=== PATIENT | male | born 1950 | race Caucasian/White ===

== ENCOUNTER 2018-01-23 19:23 | Inpatient (IN) | payer MEDICARE ==
[2018-01-23] MEDS ORDERED: Norepinephrine 8 MG/0.9% NS 250 ML ONE (19:30)
[2018-01-23 19:48] LABS: pH, Arterial 7.32 (7.35-7.45)
[2018-01-23 19:49] LABS: Actual Bicarbonate (HCO3a) 8.9 mEq/L (22-28); CO2 Tension 17.8 mmHg (35.0-45.0); O2 Tension (PaO2) 38.9 mmHg (> 80.0)
[2018-01-23 19:50] LABS: Base Excess (BEa) -15.5 mEq/L (-2.0 to +3.0); Carboxyhemoglobin (COHb) 0.2 gm% (0.0-3.0); Hemoglobin (Hb) 8.1 g/dL (14.0-18.0)
[2018-01-23 19:51] LABS: Analyzer IN Cardio ER; Calcium, Ionized 0.74 mmol/L (1.12-1.30); Potassium - ABG Lab 1.47 mmol/L (3.70-5.30); Puncture Site RBA
[2018-01-23] MEDS ORDERED: Propofol 1,000 MG/100 ML VIAL IV ONE (19:55)
[2018-01-23 20:05] LABS: #Monocytes 0.5 thou/uL (0.11-0.59); #Neutrophils 10.8 thou/uL (1.40-6.50); %Basophils 0.2 % (0.0-1.0); %Eosinophils 0.1 % (0.0-10.0); %Monocytes 4.3 % (0.0-10.0); %Neutrophils 87.4 % (42.0-75.0); Mean Corpuscular HGB CONC 33.5 g/dL (32.0-36.0); Mean Corpuscular Hemoglobin 31.6 pg (27.0-31.0); Mean Corpuscular Volume 94.5 fL (78.0-98.0); Mean Platelet Volume 8.2 fL (7.4-10.4); Platelet Count 252 thou/uL (130-400); RBC Distribution Width 11.9 % (11.5-14.5); Red Blood Cell (RBC) Count 4.44 mill/uL (4.70-6.10); White Blood Cell (WBC) Count 12.4 thou/uL (4.8-10.8)
[2018-01-23 20:13] LABS: INR-International Normal Ratio 1.3; PTT 34.9 SEC (22.9-36.1)
[2018-01-23 20:22] LABS: Magnesium 2.2 mg/dL (1.6-2.6)
[2018-01-23 20:23] LABS: Bilirubin Large (Negative); Blood, Urine Negative (Negative); Clarity CLEAR (Clear); Glucose, Urine (Dipstick) Negative (Negative); Leukocyte Small (Negative); Nitrite Negative (Negative); Protein, Urine (Dipstick) Trace mg/dL (Neg-Trace); Specific Gravity, Urine 1.029 (1.002-1.036); pH, Urine 5.5 (5.0-9.0)
[2018-01-23 20:25] LABS: Troponin I Less than 0.010 ng/mL (< 0.028)
[2018-01-23 20:25] LABS: Bacteria/HPF None Seen HPF (None Seen); Hyaline Casts/LPF 0-3 HYALINE CAST LPF (0-3 Hyaline); Pathc Cast-AUWi Flag 0.14 (0-2.49); RBC/HPF 0-3 HPF (0-3); Squamous Epithelial None Seen HPF (0-3); WBC/HPF None Seen HPF (0-3)
[2018-01-23 20:26] LABS: ALT (SGPT) 17 U/L (8-55); AST (SGOT) 19 U/L (5-34); Acetaminophen Less than 6.0 mcg/mL (10.0-30.0); Albumin 2.4 g/dL (3.4-4.8); Alcohol Less than 10 mg/dL (Less than 10); Alkaline Phosphatase 81 U/L (40-150); Anion Gap 17 mmol/L (10-20); BUN (Urea Nitrogen) 40 mg/dL (8.4-25.7); Bilirubin, Total 0.6 mg/dL (0.2-1.2); Calc. Creatinine Clearance 0 mL/min (70-130); Calcium 6.9 mg/dL (7.8-10.44); Carbon Dioxide 17 mmol/L (23-31); Chloride 114 mmol/L (98-107); Estimated GFR-MDRD Greater than 90; Globulin 2.1 g/dL (2.4-3.5); Glucose 124 mg/dL (80-115); Potassium 3.2 mmol/L (3.5-5.1); Protein, Total 4.5 g/dL (5.8-8.1); Salicylate Less than 8.0 mg/dL (15.0-30.0); Sodium 145 mmol/L (136-145)
[2018-01-23 20:35] LABS: Amphetamine Not Detected (NotDetected); Barbiturates Screen Not Detected (NotDetected); Benzodiazepine Screen Not Detected (NotDetected); Cocaine Metabolite Screen Not Detected (NotDetected); Medtox Control Line Valid? VALID (VALID); Medtox Reader # READER 1; Methadone Not Detected (NotDetected); Methamphetamine Not Detected (NotDetected); Opiate Screen Not Detected (NotDetected); Oxycodone Screen Not Detected (NotDetected); Phencyclidine (PCP) Not Detected (NotDetected); THC/Cannabinoid Screen Not Detected (NotDetected); Tricyclic Screen Not Detected (NotDetected)
--- NOTE | 2018-01-23 20:40 | RAD ---
CHEST ONE VIEW: 01/23/18 HISTORY: Chest pain. FINDINGS: The cardiac silhouette is magnified by projection. Pulmonary vasculature unremarkable. Mediastinum is midline. Tip of an endotracheal catheter overlies the thoracic inlet. Nasogastric tube descends to t he abdomen. Defibrillator patch overlies the right chest. No lobar consolidation or evidence of pneum othorax. Tip of a right subclavian central venous catheter overlies the superior vena cava. IMPRESSION: Lines and tubes are in good radiographic position. POS: [facility]
--- NOTE | 2018-01-23 20:59 | CT ---
CT HEAD NONCONTRAST: 01/23/18 HISTORY: Fall. Head injury. FINDINGS: No comparison. There is no evidence of acute intracranial hemorrhage or infarct. Ventricles appear normal in size, s hape and position. There is no mass effect or shift of midline structures. IMPRESSION: No acute intracranial abnormalities are demonstrated. POS: [facility]
[2018-01-23] MEDS ORDERED: Magnesium 2 GM/50 ML BAG (IN WATER) ONE (21:01)
[2018-01-23] MEDS ORDERED: Piperacillin/Tazobactam 4.5 GM VIAL ONE (21:01)
--- NOTE | 2018-01-23 21:16 | CT ---
CT CERVICAL SPINE NONCONTRAST 01/23/18 HISTORY: Neck injury. Fall. FINDINGS: vertebral body heights and alignment are maintained. Prominent osteophytosis. Cervicothoracic junctio n is intact. No acute fracture or dislocation. Endotracheal catheter and nasogastric tube are partial ly visualized. IMPRESSION: Degenerative changes. No acute osseous abnormalities are demonstrated. POS: [facility]
[2018-01-23] MEDS ORDERED: Enoxaparin Sodium 80 MG/0.8 ML SYRINGE ONE (22:27)
[2018-01-23] MEDS ORDERED: Potassium Chloride 40 MEQ in Premix Bag 1 BAG IVPB SCH (22:30)
[2018-01-23 23:46] LABS: Lactic Acid 2.4 mmol/L (0.5-2.2)
--- NOTE | 2018-01-23 23:53 | CT ---
CT ARTERIOGRAM CHEST WITH IV CONTRAST AND 3D MIP IMAGIN01/23/18 HISTORY: Chest pain. Dyspnea. FINDINGS: There is good contrast opacification of the pulmonary arteries and thoracic aorta with bovine origin of the great vessels at the aortic arch. No pleural fluid or mediastinal adenopathy. IMPRESSION: No CT evidence of pulmonary embolus. POS: [facility]
--- NOTE | 2018-01-23 23:56 | CT ---
CT ABDOMEN AND PELVIS WITH IV CONTRAST 01/23/18 HISTORY: Abdomen pain. FINDINGS: Lung bases are clear. Gallbladder is distended at 9.4 cm without other abnormality evident. Small cys ts associated with the cortex of each kidney and the liver. The spleen, adrenal glands and pancreas a re unremarkable. Mild fusiform ectasia of the lower abdominal aorta. Stearns catheter decompresses the urinary bladder. No enlarged lymph nodes or free fluid. There are degenerative changes of the lumbar spine. IMPRESSION: Chronic type findings as detailed above. No acute abnormalities are demonstrated. POS: [facility]
[2018-01-24] MEDS ORDERED: Fentanyl BOLUS 250 ML IVPB PRN ×2 (00:01→07:47)
[2018-01-24] MEDS ORDERED: fentaNYL Citrate/PF 2,000 MCG in Sodium Chloride 0.9% 60 ML IV SCH ×2 (00:01→07:47)
[2018-01-24] MEDS ORDERED: Propofol BOLUS 1,000 MG/100 ML VIAL IV PRN ×2 (00:01→07:47)
[2018-01-24] MEDS ORDERED: Lorazepam 2 MG/ML VIAL SLOW IVP PRN ×2 (00:01→07:47)
[2018-01-24] MEDS ORDERED: DISCONTINUE PREVIOUS NARCOTIC PAIN MEDICATIONS AND BENZODIAZEPINES FS SCH (00:01)
[2018-01-24] MEDS ORDERED: Propofol 1,000 MG/100 ML VIAL IV PRN ×2 (00:01→07:47)
[2018-01-24] MEDS ORDERED: Sodium Chloride 0.9% 1,000 ML IV SCH (00:15)
[2018-01-24 00:57] LABS: Actual Bicarbonate (HCO3a) 18.1 mEq/L (22-28); Base Excess (BEa) -5.1 mEq/L (-2.0 to +3.0); CO2 Tension 28.6 mmHg (35.0-45.0); Calcium, Ionized 1.06 mmol/L (1.12-1.30); Carboxyhemoglobin (COHb) 0.2 gm% (0.0-3.0); Hemoglobin (Hb) 13.2 g/dL (14.0-18.0); O2 Tension (PaO2) 335.6 mmHg (> 80.0); Potassium - ABG Lab 4.15 mmol/L (3.70-5.30); pH, Arterial 7.42 (7.35-7.45)
[2018-01-24 00:58] LABS: Puncture Site RRAD
--- NOTE | 2018-01-24 03:18 | CON ---
DATE OF SERVICE: 01/24/2018 REASON FOR CONSULTATION: Respiratory failure. HISTORY OF PRESENT ILLNESS: Patient is a 67-year-old white male with past medical history significant for nothing known. Apparently, he was found down by some neighbors. There was reports that he had struck his head. Either way, he was brought to the emergency department and found to be hypotensive, dehydrated, and hypothermic. He was heated. He was initially put on a low- dose suppressor. This is more than adequate to maintain his MAP. He got a couple liters of fluid, and his blood pressure returned to normal. He is currently on mechanical ventilation. He is on some propofol and so we cannot provide any additional elements of the history. PAST MEDICAL HISTORY: Largely unknown. We do not have any family members that we can talk to that are aware of his situation. PAST MEDICAL HISTORY: Unknown. PAST SURGICAL HISTORY: Unknown. SOCIAL HISTORY: Unknown. FAMILY HISTORY: Unknown. ALLERGIES: Unknown. HOME MEDICATIONS: List of his inpatient medications were reviewed. Couple of small updates were made. REVIEW OF SYSTEMS: This cannot be obtained secondary to patient's mental status issues. PHYSICAL EXAMINATION: VITAL SIGNS: Afebrile, pulse 93, blood pressure 122/75, respirations 14, saturation 95% on 27% FiO2 and a PEEP of 5. GENERAL: Patient is intubated and sedated. HEENT: Normocephalic, atraumatic. Sclerae white, conjunctivae pink. Oral and nasal mucosa is moist without lesions. LUNGS: Excellent air entry. There is no prolonged expiratory phase or wheezing appreciated. HEART: Normal rate, regular. ABDOMEN: Soft, nontender, nondistended, bowel sounds are positive. MUSCULOSKELETAL: No cyanosis or clubbing. There is no pitting in the bilateral lower extremities. SKIN: Tenting throughout. GENITOURINARY: Stearns catheter in place. NEUROLOGIC: Grossly nonfocal. Eyes: Pupils are equal, round, and reactive to light. He has a good cough and gag. He is comfortably overbreathing the ventilator. He withdrawals from noxious stimuli in all 4 extremities. LABORATORY DATA: WBC 12.4, hemoglobin 14.0, platelets 252,000. INR 1.3. PH 7.42, pCO2 of 28, pO2 of 335. This was on 70% FIO2. Glucose 132, lactate down trending to 2.4, magnesium 2.2. CK is normal. TSH falls within normal limits. Troponin is negative x1. Liver function studies are essentially unremarkable. Potassium 3.2, sodium 145, chloride 114, bicarbonate 17. Ammonia level is normal, lipase is also unremarkable. Urinalysis is completely unremarkable. It is a little concentrated. Urine drug screen including salicylates, acetaminophen, and plasma alcohol levels are unremarkable. Urine drug screen is negative. IMAGIN. CTA of the chest and thorax demonstrates no evidence of a pulmonary embolism. Endotracheal tube terminates in a good position. There is no acute cardiopulmonary abnormality, otherwise identified. Heart size is fairly small and does not look like there is any dilation to the four chambers. 2. CT of the abdomen and pelvis demonstrates no acute abdominal issues. Chronic changes are incidentally identified. 3. CT of the C-spine demonstrates no osseous abnormality or subluxation. 4. CT of the brain demonstrates no acute intracranial abnormality. 5. Chest x-ray demonstrates no acute cardiopulmonary abnormality. ASSESSMENT: 1. Metabolic encephalopathy. 2. Dehydration, severe. 3. Hypokalemia. 4. Alcohol abuse. DISCUSSION AND PLAN: We will switch his IV fluids over to half normal saline at 100 per hour. Potassium replacement has been completed. We will check a magnesium and phosphorus with tomorrow morning's laboratories. Propofol will be continued. In the morning, we will provide him with a spontaneous breathing trial while he is on the sedation holiday and determine whether or not his mentation will allow for comfortable extubation. CRITICAL CARE TIME: 30 minutes. MTDD
[2018-01-24] MEDS: Sodium Chloride 0.45% 1,000 ML IV SCH ×3 (04:52→15:46)
[2018-01-24] MEDS ORDERED: Ondansetron ODT 4 MG TAB PO PRN (07:18)
[2018-01-24] MEDS ORDERED: Acetaminophen 650 MG Suppository PR PRN (07:18)
[2018-01-24] MEDS ORDERED: Norepinephrine 8 MG/0.9% NS 250 ML IVPB PRN (07:18)
[2018-01-24] MEDS ORDERED: Lacri-Lube Opth Oint 3.5 GM TUBE EA EYE PRN (07:18)
[2018-01-24] MEDS ORDERED: Acetaminophen 325 MG TAB PO PRN (07:18)
[2018-01-24] MEDS ORDERED: Ventilator Sedation Protocol 1 EACH FS SCH (07:30)
[2018-01-24 07:52] LABS: Hemoglobin 12.8 g/dL (14.0-18.0); Mean Corpuscular Hemoglobin 30.8 pg (27.0-31.0); Mean Corpuscular Volume 93.3 fL (78.0-98.0); Mean Platelet Volume 7.8 fL (7.4-10.4); Platelet Count 210 thou/uL (130-400); Red Blood Cell (RBC) Count 4.16 mill/uL (4.70-6.10); White Blood Cell (WBC) Count 25.5 thou/uL (4.8-10.8)
--- NOTE | 2018-01-24 07:55 | HP ---
CHIEF COMPLAINT: Intubated. HISTORY OF PRESENT ILLNESS: This is a 67-year-old male who was found unresponsive at his garage apartment. School Teacher of the apartment had not seen the patient in a while, so went to go checkup on the patient and microfilm machine operator states that the patient stated that he hit his head. EMS arrived and patient was lying in his urine with a GCS score of 10. The patient was then intubated when the patient's GCS dropped to 8. En route, the patient was given fentanyl and ketamine plus rocuronium and a liter of IV fluid was given as well. The patient 's rectal temperature en route was 94.9, glucose was 193. REVIEW OF SYSTEMS: Unable to be obtained. PAST MEDICAL HISTORY: Unable to be obtained. FAMILY HISTORY: Reviewed and noncontributory to this visit. ALLERGIES: No known drug allergies. CURRENT MEDICATIONS: Unable to be obtained. PHYSICAL EXAMINATION: VITAL SIGNS: Pulse of 106, blood pressure of 61/50, respiratory rate of 12, O2 sat of 98 on ventilator. GENERAL APPEARANCE: The patient is lying in bed with endotracheal tube in place. LUNGS: Ventilated lung sounds can be appreciated at the anterior lung matute. CARDIOVASCULAR: Positive S1, S2. Regular rate and rhythm. ABDOMEN: Soft, nontender, nondistended. NEURO: The patient is GCS of 3T. EXTREMITIES: The patient is not following commands at this time and extremity details cannot be obtained. LABORATORY DATA: The patient's WBC is 12.4, hemoglobin is 14, hematocrit 41.9, RDW of 11.9. PT 16, INR is 1.3. ABGs; pH 7.3, pCO2 of 17, pO2 is 38.9, repeat is 335, pO2 saturation 63.8, repeat was 99.7 when the patient was on the vent. Sodium 145, potassium 3.2, chloride 114, carbon dioxide 17, BUN 40, creatinine 0.66, glucose 124. Lactic acid of 2.8, magnesium 2.2, AST 19, ALT 17, alkaline phosphatase 81. Ammonia is 41, creatinine 17. Lipase is 13. TSH is 2.5, nitrite is negative, leukocyte esterase is small. IMAGING: CT of the brain shows no acute intracranial pathology. Chest x-ray shows the lines and tubes are in good radiographic positions. CTA of the thorax shows no PE. CT of the abdomen and pelvis is negative. ASSESSMENT AND PLAN: 1. This is a 67-year-old male who has been admitted for hypoxemic respiratory failure. At this point, the patient has been intubated on the vent. The patient has been admitted to the ICU. We have consulted tensioning machine operator. We will manage the patient in the ICU. 2. Septic shock. The patient's temperature is 94 with a white count and the patient has a small leukoesterase. We have ordered cultures. We will follow up on cultures. We will start the patient on broad spectrum antibiotics. We will follow up on cultures and adjust antibiotics accordingly. We will follow up with tensioning machine operator recommendations. 3. Hypothermia. Patient is currently on Mahesh Hugger, we will continue to warm the patient. We will follow up on TSH and cortisol levels. 4. Hypotension. At this point, patient is on Levophed. The patient has been admitted to the ICU. 5. Deep venous thrombosis and gastrointestinal prophylaxis will be Lovenox and Pepcid. MTDD
[2018-01-24] MEDS ORDERED: Morphine 2 MG/ML SYRINGE SLOW IVP PRN (08:00)
[2018-01-24 08:10] LABS: Anion Gap 15 mmol/L (10-20); BUN (Urea Nitrogen) 34 mg/dL (8.4-25.7); Calc. Creatinine Clearance 89 mL/min (70-130); Calcium 7.9 mg/dL (7.8-10.44); Carbon Dioxide 20 mmol/L (23-31); Chloride 114 mmol/L (98-107); Estimated GFR-MDRD Greater than 90; Glucose 100 mg/dL (80-115); Magnesium 2.5 mg/dL (1.6-2.6); Potassium 3.7 mmol/L (3.5-5.1); Sodium 145 mmol/L (136-145)
[2018-01-24 08:43] LABS: Band 26 % (5-11); Lymphocytes 5 % (21-51); MDiff Complete? YES; Monocytes 3 % (0-10); Neutrophil 66 % (42-75); PLT Morphology Comment Appears Adequate; Vacuoles SLIGHT
[2018-01-24] MEDS: Piperacillin/Tazobactam 3.375 GM in Sodium Chloride 0.9% 100 ML IVPB SCH ×3 (09:36→20:53)
[2018-01-24] MEDS: Famotidine/PF 20 mg/2ml Vial SLOW IVP SCH ×2 (09:37→20:54)
[2018-01-24] MEDS: Vancomycin HCl 1 GM in Premix Bag 1 BAG IVPB SCH ×2 (09:37→20:54)
[2018-01-24] MEDS: Enoxaparin Sodium 40 MG/0.4 ML SYRINGE SC SCH (09:37)
--- NOTE | 2018-01-24 11:43 | PQF ---
DUNG AGRAY CLARIBEL CAMPA [id number] CLINICAL DOCUMENTATION IMPROVEMENT CLARIFICATION FORM: ICD-10 Updated PLEASE DO AN ADDENDUM TO THE PROGRESS NOTE WITH ANY DOCUMENTATION UPDATES OR ADDITIONS AND CARRY THROUGH TO DC SUMMARY. THANK YOU. DATE: 01/24/18 ATTN: DR. CAMPA Please exercise your independent, professional judgment in responding to the clarification form. Clinical indicators are provided on the bottom of this form for your review Please check appropriate box(es): [X ] Severe sepsis with acute organ dysfunction of: Acute respiratory failure, metabolic encephalopathy with septic shock due to UTI [ ] Sepsis due to [ ] Localized infection without sepsis [ ] Other diagnosis [ ] Unable to determine In addition, please specify: Present on Admission (POA): [ X] Yes [ ] No [ ] Unable to determine For continuity of documentation, please document condition throughout progress notes and discharge summary. Thank You. CLINICAL INDICATORS - SIGNS / SYMPTOMS / LABS Altered mental status--> 01/24 Pulm: metabolic encephalopathy Hypothermia (<96.8 F/36 C or > 100.4 F/38C), temp 94.9 per 01/23 VS and H&P Hypoxemic respiratory failure per H&P; ABG pO2 63.8 SBP <100mmHg--> hypotension per H&P Metabolic acidosis Lactic Acid >2mmol/L--> co2 17, lactic acid 2.8 01/23 lab Shock-hypotension resistant to IV fluid boluses--> septic shock per H&P WBC count (>12,000/mm^4 or <4000/mm^3 or 10% neuts, 10% bands)-->wbc 12.4 per lab 01/23 UA with small leukest per H&P RISK FACTORS Found unresponsive with respiratory failure, hypotension, small leuk in UA per H &P TREATMENTS: ICU 01/23 orders Daily CBC per orders 01/23 Blood/urine cultures 01/23 per orders Pulm Consult 01/23 per orders IV antibiotics - broad spectrum--> Vanc and Zosyn per JUN 15 IV fuids--> multiple NS bolus per H&P Vasopressors--> 01/23 Levophed drip per JUN Thank you, Clementina (This form is maintained as a part of the permanent medical record) 2015 [employer] All Rights Reserved Clementina Torres RN, BSN, [email or web address] [email or web address] MTDD
--- NOTE | 2018-01-24 14:52 | CON ---
DATE OF CONSULTATION: 01/24/2018 DATE OF ADMISSION: 01/23/2018 INDICATION FOR CONSULTATION: This is a 67-year-old gentleman who was found down at home, apparently was incoherent, was not completely unconscious, was apparently lying and some urine and was brought t o the emergency room. I believe he was actually intubated prior to being brought to the emergency ro om. He does have a history apparently of alcohol use, so we were unable to obtain any further histor y except from review of the records. The patient in the Intensive Care Unit at this time, he remains on the ventilator. He is responsive to some of the manual stimulation, but is not otherwise he look s appear to be comfortable. His blood pressure at this time is 97/66 and heart rate is 83 and shows a sinus rhythm. His EKG at the time of admission and still shows what appears to be a long QT syndro me. There was some question about some ventricular tachycardia, but I have not seen anything documen rhonda, otherwise about that. I do not see indication that the patient had any ventricular tachycardia. He has a sinus rhythm. He was also hypothermic and appears to have some sepsis, elevated white cou nt is present and workup has been underway to determine the etiology of the elevation, it may be just due to demargination with stress associated with his other medical problems and being found down. I t was uncertain as to how long he was down on the floor before his neighbor found him. The temperatu re en route was 94.9, blood sugar was 193. As far as his past medical history, allergies, current medications, we do not have any records of thi s knowledge and obviously review of systems is not obtainable and family history either. PHYSICAL EXAMINATION: GENERAL: Reveals an elderly, ill-kempt gentleman. VITAL SIGNS: Blood pressure is 108/72, heart rate is 80 and shows a sinus rhythm. O2 saturation 95% , respiratory rate on the ventilator is about 28 per minute. HEENT: Shows head to be normocephalic and atraumatic. NECK: Carotid pulses are present. I did not hear any bruits. CHEST: Appears to be clear anteriorly. There are no rales, rhonchi or wheezing. CARDIOVASCULAR: Exam reveals a regular rate and rhythm, normal S1, S2, no S3, S4. There were no sig nificant murmurs, heaves, thrills, bruits or rubs. ABDOMEN: Soft, nontender with deep palpation. He does have some what appears to be some discomfort, but I could not palpate any masses. EXTREMITIES: Showed no clubbing, cyanosis or edema. Pedal pulses are present. SKIN: Warm and dry. LABORATORY DATA: Shows elevation of the white blood cell count is increased from 12.4-25.5 since adm ission. His hemoglobin is stable and is now 12.8, with a hematocrit of 38.8. His platelet count is 210,000. His other laboratory data shows potassium 3.7, BUN was 34 with a creatinine 0.78. Cardiac enzymes are negative. Blood sugar is 132 and previous includes 124. Urinalysis was unremarkable for any significant bacteria or WBCs. His plasma alcohol level was less than 10, apparently from some h istory, the patient does drink heavily every day. IMPRESSION: 1. Mental status changes, uncertain etiology. The patient may have sepsis, the workup is in progres s. He has been given antibiotics. We will continue those medications. He has been cared for in the Intensive Care Unit. He has been seen by the newsperson, Dr. Morrissey. Otherwise, the patient appe ars to be comfortable at this time. 2. What appears to be long QT syndrome on the EKG. We will continue to monitor this. There is no i ndication the patient had any ventricular tachycardia thus far. We will see whether or not he develo ps any symptoms or arrhythmias. 3. History of alcohol abuse. He may be going into withdrawals if he has not had any recent alcohol intake. There was some history also just per se by speaking with staff that he may have had some ynes sea and vomiting, abdominal discomfort and this is why he stopped drinking about a week ago. Otherwi se, I have no significant history on this patient. 4. Elevated blood sugar, this may be due to the IV fluids that the patient is on at this time. We w ill need to have further evaluation to determine whether or not he is a diabetic. Once the patient i s extubated and more verbal, we can perhaps obtain more history. I will obtain an echocardiogram for evaluation of left ventricular systolic function. At this time, overall cardiac status; however, ap pears to be normal. There is no indication we need to intervene, we will need to watch the QT to det ermine whether or not he indeed has long QT syndrome, whether or not this may be associated with the hypothermia, but is unlikely. We will need to determine whether or not he has had any previous cardi ac history in the past.
[2018-01-24] MEDS ORDERED: Multivitamins, Adult 10 ML, Thiamine HCl 100 MG, Folic Acid 1 MG in Dextrose 5 %-0.45 %... IV SCH (15:15)
[2018-01-24] MEDS ORDERED: Sodium Phosphate 30 MMOL in Sodium Chloride 0.9% 250 ML 250 ML IVPB SCH (16:00)
[2018-01-25] MEDS: Sodium Chloride 0.45% 1,000 ML IV SCH ×3 (01:15→16:26)
[2018-01-25] MEDS: Piperacillin/Tazobactam 3.375 GM in Sodium Chloride 0.9% 100 ML IVPB SCH ×4 (03:06→21:39)
[2018-01-25 05:24] LABS: Anion Gap 8 mmol/L (10-20); BUN (Urea Nitrogen) 24 mg/dL (8.4-25.7); Calc. Creatinine Clearance 102 mL/min (70-130); Calcium 7.6 mg/dL (7.8-10.44); Carbon Dioxide 25 mmol/L (23-31); Chloride 110 mmol/L (98-107); Estimated GFR-MDRD Greater than 90; Glucose 92 mg/dL (80-115); Potassium 3.1 mmol/L (3.5-5.1); Sodium 140 mmol/L (136-145)
[2018-01-25 05:37] LABS: Band 3 % (5-11); Eosinophils 1 % (0-10); Hemoglobin 10.6 g/dL (14.0-18.0); Lymphocytes 2 % (21-51); MDiff Complete? YES; Mean Corpuscular HGB CONC 33.4 g/dL (32.0-36.0); Mean Corpuscular Hemoglobin 31.6 pg (27.0-31.0); Mean Corpuscular Volume 94.7 fL (78.0-98.0); Mean Platelet Volume 8.6 fL (7.4-10.4); Monocytes 5 % (0-10); Neutrophil 89 % (42-75); PLT Morphology Comment Appears Adequate; Platelet Count 140 thou/uL (130-400); RBC Distribution Width 11.9 % (11.5-14.5); RBC Morphology Normal; Red Blood Cell (RBC) Count 3.37 mill/uL (4.70-6.10)
[2018-01-25] MEDS: Famotidine/PF 20 mg/2ml Vial SLOW IVP SCH ×2 (07:49→21:40)
[2018-01-25] MEDS: Vancomycin HCl 1 GM in Premix Bag 1 BAG IVPB SCH (07:49)
[2018-01-25] MEDS: Enoxaparin Sodium 40 MG/0.4 ML SYRINGE SC SCH (07:50)
[2018-01-25 09:10] LABS: Vancomycin, Trough 38.8 ug/mL
--- NOTE | 2018-01-25 09:59 | RAD ---
FRONTAL VIEW CHEST: COMPARISON: 01/23/2018. INDICATION: ICU patient, followup. FINDINGS: Supportive lines and tubes remain. There is patchy density at the medial right lower lung zone. The left lung is hyperinflated. Numerous extrinsic artifacts limit detail. There is prominence of the cardiomediastinal silhouette. There is blunting of the left lateral costophrenic sulcus which could relate to a small volume of pleural fluid or some pleural thickening. IMPRESSION: Patchy medial and right basilar opacity could relate to pneumonitis or edema. Continued followup is warranted. POS: [facility]
--- NOTE | 2018-01-25 10:43 | PRG ---
DATE OF SERVICE: 01/25/2018 SUBJECTIVE: This morning, he is little more responsive on the vent. Sedation is being withheld. OBJECTIVE: VITAL SIGNS: Sats are 96, blood pressure 130/80, pulse 69, respiration rate 18. EXTREMITIES: Moves all 4 extremities. CHEST: No wheezing or rhonchi. CARDIAC: Normal S1, S2, no gallops. ABDOMEN: Soft, no masses. IMAGING: Echo was done. EF was normal. IMPRESSION: 1. Respiratory failure. 2. Encephalopathy. 3. Alcohol abuse. 4. Right lower pneumonia. PLAN: Hold sedation, try and wean. Continue antibiotics, nebulizer treatments, supportive care, arianne ntually counseling. One-half hour critical care time.
[2018-01-25] MEDS ORDERED: Potassium Chloride 20 MEQ in Premix Bag 1 BAG IVPB SCH (10:45)
[2018-01-25] MEDS: Haloperidol Lactate 5 MG/ML VIAL SLOW IVP PRN (14:50)
[2018-01-25] MEDS ORDERED: Multivitamins, Adult 10 ML, Thiamine HCl 100 MG, Folic Acid 1 MG in Dextrose 5 %-0.45 %... IV SCH (15:00)
--- NOTE | 2018-01-25 21:43 | PDOC.PN ---
- Subjective Encounter Start Date: 01/25/18 Encounter Start Time: 10:30 Patient seen and examined for Resp failure/Sepsis. Extubated. Intermittent confusion. No new complaints. No overnight events - Objective Resuscitation Status: Resuscitation Status FULL:Full Resuscitation MAR Reviewed: Yes Vital Signs & Weight: Vital Signs (12 hours) Temp Pulse Ox 01/25/18 19:00 98.3 F 98 01/25/18 17:00 97.6 F Weight Admit Weight 150 lb Weight 153 lb 0.013 oz Most Recent Monitor Data Heart Rate from ECG 81 NIBP 135/83 NIBP BP-Mean 100 Respiration from ECG 21 SpO2 99 I&O: 01/24/18 01/25/18 01/26/18 06:59 06:59 06:59 Intake Total 850.7 3311 1483 Output Total 360 1220 845 Balance 490.7 2091 638 Result Diagrams: 01/25/18 04:50 01/25/18 04:50 Radiology Reviewed by me: Yes (CXR - Rt basilar infiltrate) EKG Reviewed by me: Yes (Tele SR) Phys Exam - Physical Examination Constitutional: NAD Neck: no JVD Respiratory: no wheezing, no rhonchi Bibasilar rales/Symmetrical, Scat rhonchi Cardiovascular: RRR, no rub no heaves/pulsations Gastrointestinal: soft, non-tender, no distention, positive bowel sounds Musculoskeletal: no edema Neurological: non-focal, normal sensation, moves all 4 limbs Dx/Plan - Plan respiratory therapy, DVT proph w/lovenox, DVT proph w/SCDs IMPRESSION: 1. Severe Sepsis with acute organ dysfunction due o Aspiration Pneumonia/Septic shock on pressors/ Hypothermia/Toxic Metabolic Encephalopathy 2. Acute hypoxic resp failure on Mech Vent 3. Prolonged QT with ?tachyarrythmia 4. Hypokalemia 5. Lactic acidosis/Moderate PEM/ History of Alcohol abuse PLAN: Cont Zosyn Vancomycin dced Echo pending PT/OT consult Cont Thiamine/Folic acid Monitor for Alcohol withdrawal Cont other meds as below Review of Systems - Medications/Allergies Allergies/Adverse Reactions: Allergies Allergy/AdvReac Type Severity Reaction Status Date / Time No Allergy Information Allergy Unverified 01/23/18 22:26 Available Medications: Current Medications Acetaminophen (Tylenol) 650 mg PO Q4H PRN PRN Reason: Headache/Fever/Mild Pain (1-3) Acetaminophen (Tylenol) 650 mg PA Q4H PRN PRN Reason: Headache/Fever/Mild Pain (1-3) Enoxaparin Sodium (Lovenox) 40 mg SC 0900 [facility] Last Admin: 01/25/18 07:50 Dose: 40 mg Famotidine (Pepcid) 20 mg SLOW IVP Q12HR [facility] Last Admin: 01/25/18 07:49 Dose: 20 mg Haloperidol Lactate (Haldol) 5 mg SLOW IVP Q6H PRN PRN Reason: .AGITATION Last Admin: 01/25/18 14:50 Dose: 5 mg Sodium Chloride (1/2 Normal Saline) 1,000 mls @ 125 mls/hr IV .Q8H [facility] Last Admin: 01/25/18 16:26 Dose: Not Given Norepinephrine Bitartrate (Levophed) 250 mls @ 0 mls/hr IVPB PRN PRN; Protocol PRN Reason: To maintain MAP > 65 Fentanyl Citrate (Fentanyl Bolus) 250 mls @ 0 mls/hr IVPB PRN PRN PRN Reason: Breakthrough pain/agitation Stop: 02/23/18 07:47 Piperacillin Sod/Tazobactam (Sod 3.375 gm/ Sodium Chloride) 100 mls @ 200 mls/ hr IVPB 0300,0900,1500,2100 [facility] Last Admin: 01/25/18 15:45 Dose: 100 mls Multivitamins 10 ml/ Thiamine HCl 100 mg/ Folic Acid 1 mg/Dextrose/Sodium Chloride 1,011.2 mls @ 125 mls/hr IV 1500 [facility] Stop: 01/25/18 23:06 Last Admin: 01/25/18 15:46 Dose: 1,011.2 mls Lorazepam (Ativan) 2 mg SLOW IVP Q1H PRN PRN Reason: Breakthrough agitation Stop: 02/23/18 07:47 Mineral Oil/White Petrolatum (Lacri-Lube Ointment) 0 gm EA EYE PRN PRN PRN Reason: Dry Eyes Miscellaneous Medication (Pharmacy To Dose) 1 each IVPB ONE PRN PRN Reason: Pharmacy to dose Stop: 02/03/18 07:18 Discontinue Previous Narcotic Pain Medications And Benzodiazepines 1 each FS .ONE [facility] Stop: 02/23/18 00:01 Propofol (Diprivan) 1,000 mg IV INF PRN; Protocol PRN Reason: TO ACHIEVE GOAL RASS Stop: 02/23/18 07:47 Last Admin: 01/24/18 15:48 Dose: 1,000 mg Sodium Chloride (Flush - Normal Saline) 10 ml IVF Q12HR [facility] Last Admin: 01/25/18 07:58 Dose: 10 ml Sodium Chloride (Flush - Normal Saline) 10 ml IVF PRN PRN PRN Reason: Saline Flush
[2018-01-26] MEDS: Sodium Chloride 0.45% 1,000 ML IV SCH (01:01)
[2018-01-26] MEDS: Piperacillin/Tazobactam 3.375 GM in Sodium Chloride 0.9% 100 ML IVPB SCH ×2 (03:55→09:24)
[2018-01-26 05:08] LABS: ALT (SGPT) 10 U/L (8-55); AST (SGOT) 14 U/L (5-34); Albumin 2.1 g/dL (3.4-4.8); Alkaline Phosphatase 54 U/L (40-150); Anion Gap 8 mmol/L (10-20); BUN (Urea Nitrogen) 9 mg/dL (8.4-25.7); Bilirubin, Total 0.7 mg/dL (0.2-1.2); Calc. Creatinine Clearance 130 mL/min (70-130); Calcium 7.6 mg/dL (7.8-10.44); Carbon Dioxide 28 mmol/L (23-31); Chloride 107 mmol/L (98-107); Estimated GFR-MDRD Greater than 90; Globulin 2.3 g/dL (2.4-3.5); Glucose 80 mg/dL (80-115); Magnesium 1.8 mg/dL (1.6-2.6); Phosphorus 1.7 mg/dL (2.3-4.7); Potassium 2.6 mmol/L (3.5-5.1); Protein, Total 4.4 g/dL (5.8-8.1); Sodium 140 mmol/L (136-145)
[2018-01-26 05:21] LABS: #Eosinphils 0.1 thou/uL (0.0-0.7); #Monocytes 0.1 thou/uL (0.11-0.59); #Neutrophils 8.7 thou/uL (1.40-6.50); %Basophils 0.1 % (0.0-1.0); %Eosinophils 0.7 % (0.0-10.0); %Lymphocytes 10.2 % (21.0-51.0); %Monocytes 1.3 % (0.0-10.0); %Neutrophils 87.8 % (42.0-75.0); Hemoglobin 9.2 g/dL (14.0-18.0); Mean Corpuscular HGB CONC 33.5 g/dL (32.0-36.0); Mean Corpuscular Hemoglobin 31.4 pg (27.0-31.0); Mean Corpuscular Volume 93.8 fL (78.0-98.0); Mean Platelet Volume 8.3 fL (7.4-10.4); PLT Morphology Comment Appears Decreased; Platelet Count 101 thou/uL (130-400); RBC Distribution Width 11.7 % (11.5-14.5); RBC Morphology Normal; Red Blood Cell (RBC) Count 2.93 mill/uL (4.70-6.10)
[2018-01-26] MEDS: Potassium Chloride 20 MEQ in Premix Bag 1 BAG IVPB SCH ×2 (06:14→09:24)
[2018-01-26] MEDS ORDERED: Potassium Phosphate 30 MMOL in Sodium Chloride 0.9% 250 ML 250 ML IVPB SCH (06:30)
[2018-01-26] MEDS: Famotidine/PF 20 mg/2ml Vial SLOW IVP SCH ×2 (09:23→22:10)
[2018-01-26] MEDS: Enoxaparin Sodium 40 MG/0.4 ML SYRINGE SC SCH (09:24)
[2018-01-26] MEDS: D5 1/2 NS w/20 mEq KCL 1,000 ML IV SCH ×2 (10:13→20:59)
[2018-01-26] MEDS ORDERED: Amoxicillin/Potassium Clav 500 MG TAB PO SCH (10:15)
--- NOTE | 2018-01-26 10:56 | RAD ---
FRONTAL VIEW CHEST: COMPARISON: Previous day. INDICATION: ICU patient, ventilated patient, followup. FINDINGS: Interval increased confluence of previously mentioned right basilar opacity. Left lung is grossly st able. Right side subclavian venous catheter is present. Interval removal of prior endotracheal and enteric catheters. Numerous extrinsic artifacts limit visualization. IMPRESSION: 1. Progressive medial right basilar opacity. Recommend continued followup. 2. Interval extubation. POS: [facility]
[2018-01-26] MEDS: Haloperidol Lactate 5 MG/ML VIAL SLOW IVP PRN (12:18)
--- NOTE | 2018-01-26 12:20 | PRG ---
DATE OF SERVICE: 01/26/2018 SUBJECTIVE: This morning, he is slightly less encephalopathic. PHYSICAL EXAMINATION: VITAL SIGNS: Pulse 87, blood pressure 120/82, respirations 21, sats are 95%. He said he is feeling good. His I's and O's have been good. He is afebrile. CHEST: Reveals minimal rhonchi. CARDIAC: Normal S1 and S2. No gallops. ABDOMEN: Soft. No masses. LABORATORY DATA: Potassium 2.6. White count 10,000, hemoglobin and hematocrit 9 and 27. IMPRESSION: 1. Respiratory failure. 2. Possibly aspiration of right lower lobe. 3. Encephalopathy. 4. Alcohol abuse. PLAN: Potassium is being replaced, switching him over to oral antibiotics. Continue PT and supporti ve care.
[2018-01-26] MEDS ORDERED: Lorazepam 2 MG/ML VIAL SLOW IVP PRN (13:38)
[2018-01-26 16:14] LABS: Potassium 3.2 mmol/L (3.5-5.1)
[2018-01-26] MEDS: Pot Chloride/Pot Bicarb/Cit Ac 25 mEq Effervescent Tablet PO SCH (18:36)
--- NOTE | 2018-01-26 21:54 | PDOC.PN ---
- Subjective Encounter Start Date: 01/26/18 Encounter Start Time: 08:30 Patient seen and examined for resp failure/ Sepsis. Confused. No overnight events - Objective Resuscitation Status: Resuscitation Status FULL:Full Resuscitation MAR Reviewed: Yes Vital Signs & Weight: Vital Signs (12 hours) Temp Pulse Pulse BP BP BP Pulse Ox 01/26/18 15:00 97.9 F 01/26/18 11:00 98.1 F 01/26/18 10:43 99 96 114/80 113/77 116/84 96 Weight Admit Weight 150 lb Weight 155 lb 3.287 oz Most Recent Monitor Data Heart Rate from ECG 53 NIBP 101/62 NIBP BP-Mean 75 Respiration from ECG 24 SpO2 97 I&O: 01/25/18 01/26/18 01/27/18 06:59 06:59 06:59 Intake Total 3311 3065 1644 Output Total 1220 1045 1700 Balance 2090 Result Diagrams: 01/26/18 04:44 01/26/18 15:54 Radiology Reviewed by me: Yes (CXR - Rt sided pneumonia) EKG Reviewed by me: Yes (Tele SR) Phys Exam - Physical Examination Constitutional: NAD Respiratory: no wheezing, no rhonchi Bibasilar rales, symmetrical Cardiovascular: RRR, no rub no heaves/pulsations Gastrointestinal: soft, non-tender, no distention, positive bowel sounds Musculoskeletal: no edema, pulses present Neurological: non-focal, moves all 4 limbs Confused Dx/Plan - Plan DVT proph w/lovenox, DVT proph w/SCDs IMPRESSION: 1. Severe Sepsis with acute organ dysfunction due o Aspiration Pneumonia/Septic shock on pressors/ Hypothermia/Toxic Metabolic Encephalopathy 2. Acute hypoxic resp failure s/p Mech Vent 3. Prolonged QT with ?tachyarrythmia 4. Hypokalemia/Hypophosphatemia 5. Lactic acidosis/Moderate PEM/ History of Alcohol abuse with possible DTs PLAN: Cont Zosyn Adjust IVF Replace Electrolytes ASE protocol with PRNAtivan Cont Thiamine/Folic acid Cont other meds as below Review of Systems - Review of Systems Respiratory: negative: Cough, Dry, Shortness of Breath, Hemoptysis, SOB with Excertion, Pleuritic Pain, Sputum, Wheezing Cardiovascular: negative: chest pain, palpitations, orthopnea, paroxysmal nocturnal dyspnea, edema, light headedness, other - Medications/Allergies Allergies/Adverse Reactions: Allergies Allergy/AdvReac Type Severity Reaction Status Date / Time No Allergy Information Allergy Unverified 01/23/18 22:26 Available Medications: Current Medications Acetaminophen (Tylenol) 650 mg PO Q4H PRN PRN Reason: Headache/Fever/Mild Pain (1-3) Acetaminophen (Tylenol) 650 mg [place] Q4H PRN PRN Reason: Headache/Fever/Mild Pain (1-3) Amoxicillin/Clavulanate Potassium (Augmentin) 500 mg PO Q12HR [facility] Enoxaparin Sodium (Lovenox) 40 mg SC 0900 [facility] Last Admin: 01/26/18 09:24 Dose: 40 mg Famotidine (Pepcid) 20 mg SLOW IVP Q12HR [facility] Last Admin: 01/26/18 09:23 Dose: 20 mg Haloperidol Lactate (Haldol) 5 mg SLOW IVP Q6H PRN PRN Reason: .AGITATION Last Admin: 01/26/18 12:18 Dose: 5 mg Norepinephrine Bitartrate (Levophed) 250 mls @ 0 mls/hr IVPB PRN PRN; Protocol PRN Reason: To maintain MAP > 65 Fentanyl Citrate (Fentanyl Bolus) 250 mls @ 0 mls/hr IVPB PRN PRN PRN Reason: Breakthrough pain/agitation Stop: 02/23/18 07:47 Potassium Chloride/Dextrose/Sod Cl (D5 1/2 Ns W/20 Meq Kcl) 1,000 mls @ 100 mls /hr IV .Q10H [facility] Last Admin: 01/26/18 20:59 Dose: 1,000 mls Dexmedetomidine HCl 200 mcg/ (Sodium Chloride) 50 mls @ 0 mls/hr IVPB INF [facility]; Protocol Last Admin: 01/26/18 20:59 Dose: 50 mls Lorazepam (Ativan) 2 mg SLOW IVP Q1H PRN PRN Reason: Breakthrough agitation Stop: 02/23/18 07:47 Lorazepam (Ativan) 1 mg SLOW IVP Q4H PRN PRN Reason: ASE >9 Last Admin: 01/26/18 13:56 Dose: 1 mg Mineral Oil/White Petrolatum (Lacri-Lube Ointment) 0 gm EA EYE PRN PRN PRN Reason: Dry Eyes Discontinue Previous Narcotic Pain Medications And Benzodiazepines 1 each FS .ONE [facility] Stop: 02/23/18 00:01 Potassium Bicarb/Potassium Chloride (K-Lyte Cl) 25 meq PO BID-WM [facility] Last Admin: 01/26/18 18:36 Dose: Not Given Propofol (Diprivan) 1,000 mg IV INF PRN; Protocol PRN Reason: TO ACHIEVE GOAL RASS Stop: 02/23/18 07:47 Last Admin: 01/24/18 15:48 Dose: 1,000 mg Sodium Chloride (Flush - Normal Saline) 10 ml IVF Q12HR [facility] Last Admin: 01/26/18 09:25 Dose: 10 ml Sodium Chloride (Flush - Normal Saline) 10 ml IVF PRN PRN PRN Reason: Saline Flush
[2018-01-26] MEDS: Amoxicillin/Potassium Clav 500 MG TAB PO SCH (22:10)
[2018-01-27 05:32] LABS: #Eosinphils 0.1 thou/uL (0.0-0.7); #Monocytes 0.4 thou/uL (0.11-0.59); #Neutrophils 5.8 thou/uL (1.40-6.50); %Basophils 0.1 % (0.0-1.0); %Eosinophils 1.5 % (0.0-10.0); %Lymphocytes 13.6 % (21.0-51.0); %Neutrophils 78.8 % (42.0-75.0); Hemoglobin 9.8 g/dL (14.0-18.0); Mean Corpuscular HGB CONC 33.4 g/dL (32.0-36.0); Mean Corpuscular Hemoglobin 31.4 pg (27.0-31.0); Mean Platelet Volume 8.8 fL (7.4-10.4); Platelet Count 106 thou/uL (130-400); RBC Distribution Width 11.9 % (11.5-14.5); Red Blood Cell (RBC) Count 3.11 mill/uL (4.70-6.10); White Blood Cell (WBC) Count 7.3 thou/uL (4.8-10.8)
[2018-01-27 05:37] LABS: ALT (SGPT) 9 U/L (8-55); AST (SGOT) 12 U/L (5-34); Albumin 2.2 g/dL (3.4-4.8); Alkaline Phosphatase 59 U/L (40-150); Anion Gap 6 mmol/L (10-20); BUN (Urea Nitrogen) 4 mg/dL (8.4-25.7); Bilirubin, Total 0.5 mg/dL (0.2-1.2); Calc. Creatinine Clearance 130 mL/min (70-130); Carbon Dioxide 29 mmol/L (23-31); Chloride 108 mmol/L (98-107); Estimated GFR-MDRD Greater than 90; Globulin 2.7 g/dL (2.4-3.5); Glucose 133 mg/dL (80-115); Magnesium 1.7 mg/dL (1.6-2.6); Phosphorus 2.7 mg/dL (2.3-4.7); Potassium 3.3 mmol/L (3.5-5.1); Protein, Total 4.9 g/dL (5.8-8.1); Sodium 140 mmol/L (136-145)
[2018-01-27] MEDS: D5 1/2 NS w/20 mEq KCL 1,000 ML IV SCH ×2 (06:39→15:11)
[2018-01-27] MEDS: Pot Chloride/Pot Bicarb/Cit Ac 25 mEq Effervescent Tablet PO SCH ×2 (08:59→16:13)
[2018-01-27] MEDS: Amoxicillin/Potassium Clav 500 MG TAB PO SCH ×2 (08:59→20:22)
[2018-01-27] MEDS: Enoxaparin Sodium 40 MG/0.4 ML SYRINGE SC SCH (09:24)
[2018-01-27] MEDS: Famotidine/PF 20 mg/2ml Vial SLOW IVP SCH ×2 (09:24→20:22)
--- NOTE | 2018-01-27 09:37 | RAD ---
AP CHEST: History: Chest pain. CCU patient. History of ventilator dependence. Date: 01-27-18 Comparison: 01-26-18 FINDINGS: AP chest demonstrates a right subclavian central line, distal tip overlying the SVC/right atrial junc tion. There is diffuse airspace opacities in the right midlung and right hilar region. This is not signific antly changed since the previous comparison exam. The left lung is well aerated. No other acute abnor mality is seen. IMPRESSION: Right mid and right lung base opacities. POS: [facility]
--- NOTE | 2018-01-27 12:41 | PDOC.CTH ---
<Esther Navarrete - Last Filed: 01/27/18 12:54> Cardiology Progress Note - Subjective The pt seen and examined. No overnight events. No cardiac complaints. He is still confused and very drowsy. - Objective Vital Signs Temp Pulse Ox 01/27/18 11:00 97.2 F L 01/27/18 08:00 95 01/27/18 07:00 96.7 F L 01/27/18 04:00 97.0 F L Admit Weight 150 lb Weight 155 lb 3.287 oz 01/26/18 01/27/18 01/28/18 06:59 06:59 06:59 Intake Total 3065 2890.9 Output Total 1045 1833 600 Balance 2020 1057.9 -600 - Physical Examination Lungs: other: (coarses and very diminished at bases) Heart: RRR Abdomen: soft Extremities: other: (No edema) - Telemetry Telemetry Rhythm: SR - Labs Result Diagrams: 01/27/18 05:05 01/27/18 05:05 Troponin/CKMB CK-MB (CK-2) 1.0 ng/mL (0-6.6) 01/23/18 19:44 Troponin I Less than 0.010 ng/mL (< 0.028) 01/23/18 19:44 - Assessment/Plan 1. Prolonged QT - No changed; Will discuss with EP 2. Sepsis 2/2 Aspiration PNA - 3. Resp failure - stable 4. Hypokalemia - Kcl replacement today 5. History of ETOH abuse with possible DTs - stable with ASE protocol with PRN Ativan; managed by PCP MAR reviewed * Echo on 01/24/18 showed EF 60-65%, mild ERV, mild MR, mild TR, and mild WI. Review of Systems - Review of Systems Constitutional: reports: no symptoms reported EENTM: reports: no symptoms reported Respiratory: reports: no symptoms reported Cardiac (ROS): reports: no symptoms reported ABD/GI: reports: no symptoms reported : reports: no symptoms reported Musculoskeletal: reports: no symptoms reported <Isi Zuñiga - Last Filed: 01/27/18 14:57> Cardiology Progress Note - Objective Vital Signs Temp Pulse Ox 01/27/18 11:00 97.2 F L 01/27/18 08:00 95 01/27/18 07:00 96.7 F L 01/27/18 04:00 97.0 F L Admit Weight 150 lb Weight 155 lb 3.287 oz 01/26/18 01/27/18 01/28/18 06:59 06:59 06:59 Intake Total 3065 2890.9 45 Output Total 1045 1833 600 Balance 2019 1057.9 -555 - Labs Result Diagrams: 01/27/18 05:05 01/27/18 05:05 Troponin/CKMB CK-MB (CK-2) 1.0 ng/mL (0-6.6) 01/23/18 19:44 Troponin I Less than 0.010 ng/mL (< 0.028) 01/23/18 19:44 - Assessment/Plan Pt. seen and eval. by me. I agree with the A/P by the WINE STEWARD/STEWARDESS. Will discuss long QT EKG with EP today.
[2018-01-27] MEDS ORDERED: Potassium Chloride 40 MEQ in Sodium Chloride 0.9% 250 ML 250 ML IVPB SCH (12:45)
[2018-01-27] MEDS ORDERED: Potassium Chloride 40 MEQ in Premix Bag 1 BAG IVPB SCH ×2 (13:15→17:00)
--- NOTE | 2018-01-27 13:35 | PRG ---
DATE OF SERVICE: 01/27/2018 SERVICE: Pulmonary Medicine INTERVAL HISTORY: The patient is doing absolutely wonderful from a respiratory standpoint. Mentation serna he is doing well on the Precedex. He denies any current chest pain, nausea, vomiting, fevers or chills. Otherwise, there has been no interval change to his condition. PHYSICAL EXAMINATION: VITAL SIGNS: Afebrile, pulse 70, blood pressure 142/92, respirations 25, saturation 96% on room air. GENERAL: The patient is awake, alert, in no apparent distress. LUNGS: Excellent air entry. There is no prolonged expiratory phase or wheezing present. HEART: Normal rate, regular. ABDOMEN: Soft, nontender, nondistended. Bowel sounds are positive. MUSCULOSKELETAL: No cyanosis or clubbing. There is no pitting in the bilateral lower extremities. NEUROLOGIC: Grossly nonfocal. LABORATORY DATA: WBC 7.3, hemoglobin 9.8, platelets 106,000 and roughly stable. Potassium 3.3. Basic metabolic profile is otherwise unremarkable. Magnesium and phosphorus fall within the normal limits. Blood cultures remain negative to date. IMAGING: Chest x-ray demonstrates right mid lung zone, and right base opacifications. ASSESSMENT: 1. Metabolic encephalopathy. 2. Dehydration, severe. 3. Alcohol abuse with delirium tremens, improving. 4. Community acquired pneumonia. 5. Hypokalemia. DISCUSSION AND PLAN: The patient is refusing p.o. As such, we will replace his magnesium and potassium by IV route. I will give him a laboratory holiday tomorrow morning. He remains fairly volume depleted. As such, we will continue his IV hydration. Once he is off of his Precedex, he can be transitioned out of the ICU to the regular floor. Pulmonary Critical Care will continue to follow along, however, while he remains in this location. JULIAN
[2018-01-27] MEDS ORDERED: Magnesium 2 GM/50 ML 2 GM in Premix Bag 1 BAG IVPB SCH (13:45)
--- NOTE | 2018-01-27 15:26 | PDOC.PN ---
- Subjective Encounter Start Date: 01/27/18 Encounter Start Time: 15:23 Subjective: c/o feeling thirsty.no pain -: sitting up in neuro chair - Objective Resuscitation Status: Resuscitation Status FULL:Full Resuscitation MAR Reviewed: Yes Vital Signs & Weight: Vital Signs (12 hours) Temp Pulse Ox 01/27/18 15:00 97.7 F 01/27/18 11:00 97.2 F L 01/27/18 08:00 95 01/27/18 07:00 96.7 F L 01/27/18 04:00 97.0 F L Weight Admit Weight 150 lb Weight 155 lb 3.287 oz Most Recent Monitor Data Heart Rate from ECG 53 NIBP 134/80 NIBP BP-Mean 98 Respiration from ECG 14 SpO2 94 I&O: 01/26/18 01/27/18 01/28/18 06:59 06:59 06:59 Intake Total 3065 2890.9 45 Output Total 1045 1833 600 Balance 2020 1057.9 -555 Result Diagrams: 01/27/18 05:05 01/27/18 05:05 Additional Labs: Microbiology 01/23/18 19:44 Venous blood - Left Arm Blood Culture - Preliminary NO GROWTH AT 48 HOURS 01/23/18 19:44 Venous blood - Left Arm Blood Culture - Preliminary NO GROWTH AT 48 HOURS Phys Exam - Physical Examination eak,ill looking.dishevelled HEENT: PERRLA, sclera anicteric, oral pharynx no lesions dry mucosa Neck: no nodes, no JVD, supple, full ROM Respiratory: no wheezing, no rales, no rhonchi Cardiovascular: RRR, no significant murmur Gastrointestinal: soft, non-tender, no distention, positive bowel sounds Musculoskeletal: no edema, pulses present Neurological: non-focal, normal sensation, moves all 4 limbs Psychiatric: normal affect, A&O x 3 Skin: no rash Dx/Plan - Plan * .IMPRESSION: 1. Severe Sepsis with acute organ dysfunction due o Aspiration Pneumonia/Septic shock off of pressors/ Hypothermia/Toxic Metabolic Encephalopathy 2. Acute hypoxic resp failure s/p Mech Vent-Extubated now 3. Prolonged QT with ?tachyarrythmia. 4. Hypokalemia/Hypophosphatemia 5. Lactic acidosis/Moderate PEM/ History of Alcohol abuse with possible DTs PLAN: EP eval for prolonged QTc.on monitor. Zosyn changed to PO Abx per PCCM. Continue IVF as clinically still dry. Replace Electrolytes.recheck ASE protocol with PRNAtivan.on Precedex drip.continue Cont Thiamine/Folic acid Cont other meds as below Review of Systems - Review of Systems Constitutional: weakness, malaise Other: limited due to somnolence/weakness - Medications/Allergies Allergies/Adverse Reactions: Allergies Allergy/AdvReac Type Severity Reaction Status Date / Time No Allergy Information Allergy Unverified 01/23/18 22:26 Available Medications: Current Medications Acetaminophen (Tylenol) 650 mg PO Q4H PRN PRN Reason: Headache/Fever/Mild Pain (1-3) Acetaminophen (Tylenol) 650 mg [place] Q4H PRN PRN Reason: Headache/Fever/Mild Pain (1-3) Amoxicillin/Clavulanate Potassium (Augmentin) 500 mg PO Q12HR [facility] Last Admin: 01/27/18 08:59 Dose: Not Given Enoxaparin Sodium (Lovenox) 40 mg SC 0900 [facility] Last Admin: 01/27/18 09:24 Dose: 40 mg Famotidine (Pepcid) 20 mg SLOW IVP Q12HR [facility] Last Admin: 01/27/18 09:24 Dose: 20 mg Folic Acid (Folvite) 1 mg PO DAILY [facility] Norepinephrine Bitartrate (Levophed) 250 mls @ 0 mls/hr IVPB PRN PRN; Protocol PRN Reason: To maintain MAP > 65 Potassium Chloride/Dextrose/Sod Cl (D5 1/2 Ns W/20 Meq Kcl) 1,000 mls @ 100 mls /hr IV .Q10H [facility] Last Admin: 01/27/18 15:11 Dose: 1,000 mls Dexmedetomidine HCl 200 mcg/ (Sodium Chloride) 50 mls @ 0 mls/hr IVPB INF [facility]; Protocol Last Admin: 01/27/18 12:11 Dose: 50 mls Potassium Chloride 40 meq/ (Device) 100 mls @ 25 mls/hr IVPB NOW [facility] Stop: 01/27/18 17:14 Last Admin: 01/27/18 13:14 Dose: 100 mls Potassium Chloride 40 meq/ (Device) 100 mls @ 25 mls/hr IVPB 1700 [facility] Stop: 01/27/18 20:59 Lorazepam (Ativan) 1 mg SLOW IVP Q4H PRN PRN Reason: ASE >9 Last Admin: 01/26/18 13:56 Dose: 1 mg Discontinue Previous Narcotic Pain Medications And Benzodiazepines 1 each FS .ONE [facility] Stop: 02/23/18 00:01 Potassium Bicarb/Potassium Chloride (K-Lyte Cl) 25 meq PO BID-WM [facility] Last Admin: 01/27/18 08:59 Dose: Not Given Sodium Chloride (Flush - Normal Saline) 10 ml IVF Q12HR [facility] Last Admin: 01/27/18 09:24 Dose: 10 ml Sodium Chloride (Flush - Normal Saline) 10 ml IVF PRN PRN PRN Reason: Saline Flush Thiamine HCl (Thiamine) 100 mg PO DAILY [facility]
[2018-01-28] MEDS: D5 1/2 NS w/20 mEq KCL 1,000 ML IV SCH ×4 (00:50→23:33)
[2018-01-28] MEDS: Enoxaparin Sodium 40 MG/0.4 ML SYRINGE SC SCH (08:37)
[2018-01-28] MEDS: Amoxicillin/Potassium Clav 500 MG TAB PO SCH ×2 (08:37→21:11)
[2018-01-28] MEDS: Pot Chloride/Pot Bicarb/Cit Ac 25 mEq Effervescent Tablet PO SCH ×2 (08:37→17:42)
[2018-01-28] MEDS: Folic Acid 1 MG TAB PO SCH (08:39)
[2018-01-28] MEDS: Famotidine/PF 20 mg/2ml Vial SLOW IVP SCH (08:39)
[2018-01-28] MEDS ORDERED: Lorazepam 2 MG/ML VIAL SLOW IVP PRN (09:01)
--- NOTE | 2018-01-28 10:08 | PDOC.CTH ---
Cardiology Progress Note - Subjective pt. seen and eval. still confused but awake . Calm. no cardiac complaints. - Objective Vital Signs Temp Pulse Ox 01/28/18 08:00 98.3 F 94 L 01/28/18 03:00 98.7 F 01/27/18 23:00 97.9 F Admit Weight 150 lb Weight 158 lb 15.253 oz 01/27/18 01/28/18 01/29/18 06:59 06:59 06:59 Intake Total 2890.9 2238 Output Total 1833 2550 Balance 1057.9 -312 - Physical Examination General/Neuro: alert & oriented x3, NAD Neck: carotid US brisk, no JVD present Lungs: CTA, unlabored respirations Heart: RRR Abdomen: NT/ND - Telemetry Telemetry Rhythm: NSR. - Labs Result Diagrams: 01/27/18 05:05 01/27/18 05:05 Troponin/CKMB CK-MB (CK-2) 1.0 ng/mL (0-6.6) 01/23/18 19:44 Troponin I Less than 0.010 ng/mL (< 0.028) 01/23/18 19:44 - Assessment/Plan 1. Prolonged QT - slightly less than on admission.; Discussed with EP. No intervention indicated. This will likely improve when he is back to his baseline. Likely due to electrolyte shifts associated with the ETOH and sepsis with acidosis. 2. Sepsis 2/2 Aspiration PNA - 3. Resp failure - stable 4. Hypokalemia - Kcl replacement today 5. History of ETOH abuse with possible DTs - stable with ASE protocol with PRN Ativan; managed by PCP SUE cisneros * Echo on 01/24/18 showed EF 60-65%, mild ERV, mild MR, mild TR, and mild DE. Overall cardiac status is stable. Nl. EF. I will sign off. if any cardiac issues then I will be happy to visit again.
--- NOTE | 2018-01-28 10:43 | PRG ---
DATE OF SERVICE: 01/28/2018 SERVICE: Pulmonary Medicine. INTERVAL HISTORY: The patient is doing outstanding from a respiratory standpoint. He denies any current chest pain, fevers, chills, shortness of breath. Otherwise, there has been no interval change to his condition. Cardiology has signed off of the patient. They are suggesting that he does not require telemetry monitoring moving forward. He has been weaned off of his Precedex as of this morning. He does not have any specific complaints today. PHYSICAL EXAMINATION: VITAL SIGNS: Afebrile, pulse 56, blood pressure 147/89, respirations 22, saturation 94% on room air. GENERAL: The patient is awake, alert, no apparent distress. LUNGS: There is decent air entry. Some rhonchi are present. They clear with cough. Dependent crackles are minimal. HEART: Normal rate, regular. ABDOMEN: Soft, nontender, nondistended. Bowel sounds are positive. MUSCULOSKELETAL: No cyanosis or clubbing. There is no pitting in the bilateral lower extremities. There is skin tenting throughout. NEUROLOGIC: Grossly nonfocal. ASSESSMENT: 1. Metabolic encephalopathy, resolving. 2. Dehydration, severe. 3. Alcohol abuse with delirium tremens, resolving. 4. Community-acquired pneumonia. 5. Hypokalemia. DISCUSSION AND PLANS: The patient can be transitioned to the medical unit. I will repeat some laboratories tomorrow morning including base met, magnesium, and phosphorus. From my perspective, he is stable for transition out of the hospital provided we had a safe place for him to go. He requires a repeat chest x-ray in 4-6 weeks to verify the infiltrate resolves. He has no further requirements for inpatient Pulmonary or Critical Care opinion, and I will sign off. Call with additional questions or concerns moving forward. JULIAN
--- NOTE | 2018-01-28 15:55 | PDOC.PN ---
- Subjective Encounter Start Date: 01/28/18 Encounter Start Time: 15:53 Subjective: feels weak and tired.poor appetite - Objective Resuscitation Status: Resuscitation Status FULL:Full Resuscitation MAR Reviewed: Yes Vital Signs & Weight: Vital Signs (12 hours) Temp Pulse Ox 01/28/18 12:00 98.4 F 01/28/18 08:00 98.3 F 94 L Weight Admit Weight 150 lb Weight 158 lb 15.253 oz Most Recent Monitor Data Heart Rate from ECG 94 NIBP 134/95 NIBP BP-Mean 108 Respiration from ECG 17 SpO2 93 I&O: 01/27/18 01/28/18 01/29/18 06:59 06:59 06:59 Intake Total 2890.9 2238 350 Output Total 1833 2550 Balance 1057.9 -312 350 Result Diagrams: 01/27/18 05:05 01/27/18 05:05 Phys Exam - Physical Examination Constitutional: NAD dishevelled.confused HEENT: PERRLA, sclera anicteric, oral pharynx no lesions dry mucosa Neck: no nodes, no JVD, supple, full ROM Respiratory: no wheezing, clear to auscultation bilateral Cardiovascular: RRR, no significant murmur Gastrointestinal: soft, non-tender, no distention, positive bowel sounds Musculoskeletal: no edema, pulses present Neurological: non-focal, normal sensation, moves all 4 limbs Psychiatric: normal affect, A&O x 3 Skin: no rash Dx/Plan - Plan PT/OT, respiratory therapy, incentive spirometry, DVT proph w/SCDs * ..IMPRESSION: 1. Severe Sepsis with acute organ dysfunction due o Aspiration Pneumonia/Septic shock off of pressors/ Hypothermia/Toxic Metabolic Encephalopathy 2. Acute hypoxic resp failure s/p Mech Vent-Extubated now 3. Prolonged QT with ?tachyarrythmia. 4. Hypokalemia/Hypophosphatemia 5. Lactic acidosis/Moderate PEM/ History of Alcohol abuse with possible DTs PLAN: Ok to transfer to medical.HD stable. off of precedex,No Dts.Cont PRN ativan,ASE protocol.thiamine placement am labs Review of Systems - Review of Systems Constitutional: weakness, malaise. negative: fever, chills, sweats, other Respiratory: Cough. negative: Dry, Shortness of Breath, Hemoptysis, SOB with Excertion, Pleuritic Pain, Sputum, Wheezing Cardiovascular: negative: chest pain, palpitations, orthopnea, paroxysmal nocturnal dyspnea, edema, light headedness, other Gastrointestinal: negative: Nausea, Vomiting, Abdominal Pain, Diarrhea, Constipation, Melena, Hematochezia, Other Genitourinary: negative: Dysuria, Frequency, Incontinence, Hematuria, Retention , Other Musculoskeletal: negative: Neck Pain, Shoulder Pain, Arm Pain, Back Pain, Hand Pain, Leg Pain, Foot Pain, Other Neurological: negative: Weakness, Numbness, Incoordination, Change in Speech, Confusion, Seizures, Other - Medications/Allergies Allergies/Adverse Reactions: Allergies Allergy/AdvReac Type Severity Reaction Status Date / Time No Allergy Information Allergy Verified 01/28/18 09:37 Available Medications: Current Medications Acetaminophen (Tylenol) 650 mg PO Q4H PRN PRN Reason: Headache/Fever/Mild Pain (1-3) Acetaminophen (Tylenol) 650 mg [place] Q4H PRN PRN Reason: Headache/Fever/Mild Pain (1-3) Amoxicillin/Clavulanate Potassium (Augmentin) 500 mg PO Q12HR [facility] Last Admin: 01/28/18 08:37 Dose: 500 mg Enoxaparin Sodium (Lovenox) 40 mg SC 0900 [facility] Last Admin: 01/28/18 08:37 Dose: 40 mg Famotidine (Pepcid) 20 mg PO Q12HR [facility] Folic Acid (Folvite) 1 mg PO DAILY [facility] Last Admin: 01/28/18 08:39 Dose: 1 mg Potassium Chloride/Dextrose/Sod Cl (D5 1/2 Ns W/20 Meq Kcl) 1,000 mls @ 100 mls /hr IV .Q10H [facility] Last Admin: 01/28/18 12:20 Dose: 1,000 mls Lorazepam (Ativan) 2 mg SLOW IVP Q2H PRN PRN Reason: ASE >9 Potassium Bicarb/Potassium Chloride (K-Lyte Cl) 25 meq PO BID-[facility] Last Admin: 01/28/18 08:37 Dose: 25 meq Sodium Chloride (Flush - Normal Saline) 10 ml IVF Q12HR [facility] Last Admin: 01/28/18 09:33 Dose: 10 ml Sodium Chloride (Flush - Normal Saline) 10 ml IVF PRN PRN PRN Reason: Saline Flush Thiamine HCl (Thiamine) 100 mg PO DAILY [facility] Last Admin: 01/28/18 08:39 Dose: 100 mg
[2018-01-28] MEDS: Famotidine 20 MG TAB PO SCH (21:11)
[2018-01-29 05:29] LABS: #Eosinphils 0.1 thou/uL (0.0-0.7); #Monocytes 1.1 thou/uL (0.11-0.59); #Neutrophils 7.9 thou/uL (1.40-6.50); %Basophils 0.1 % (0.0-1.0); %Eosinophils 0.8 % (0.0-10.0); %Monocytes 10.5 % (0.0-10.0); %Neutrophils 78.6 % (42.0-75.0); Mean Corpuscular Hemoglobin 30.9 pg (27.0-31.0); Mean Corpuscular Volume 93.7 fL (78.0-98.0); Mean Platelet Volume 8.2 fL (7.4-10.4); Platelet Count 172 thou/uL (130-400); RBC Distribution Width 12.5 % (11.5-14.5); Red Blood Cell (RBC) Count 3.57 mill/uL (4.70-6.10)
[2018-01-29 05:53] LABS: Anion Gap 9 mmol/L (10-20); BUN (Urea Nitrogen) Less than 4 mg/dL (8.4-25.7); Calc. Creatinine Clearance 124 mL/min (70-130); Calcium 8.5 mg/dL (7.8-10.44); Carbon Dioxide 26 mmol/L (23-31); Chloride 102 mmol/L (98-107); Estimated GFR-MDRD Greater than 90; Glucose 89 mg/dL (80-115); Magnesium 1.9 mg/dL (1.6-2.6); Phosphorus 2.1 mg/dL (2.3-4.7); Potassium 3.7 mmol/L (3.5-5.1); Sodium 133 mmol/L (136-145)
[2018-01-29] MEDS: Enoxaparin Sodium 40 MG/0.4 ML SYRINGE SC SCH (08:50)
[2018-01-29] MEDS: Folic Acid 1 MG TAB PO SCH (08:51)
[2018-01-29] MEDS: Amoxicillin/Potassium Clav 500 MG TAB PO SCH ×2 (08:51→21:03)
[2018-01-29] MEDS: D5 1/2 NS w/20 mEq KCL 1,000 ML IV SCH ×3 (09:55→22:43)
[2018-01-29] MEDS: Famotidine 20 MG TAB PO SCH ×3 (09:56→21:03)
[2018-01-29] MEDS: Pot Chloride/Pot Bicarb/Cit Ac 25 mEq Effervescent Tablet PO SCH ×3 (09:57→17:31)
[2018-01-29 13:20] VITALS: BMI 20.7
--- NOTE | 2018-01-29 14:59 | PDOC.PN ---
- Subjective Encounter Start Date: 01/29/18 Encounter Start Time: 14:57 Subjective: feels OK. feels hungry -: discussed NH placement & he is agreeable for that -: no ON events - Objective Resuscitation Status: Resuscitation Status FULL:Full Resuscitation MAR Reviewed: Yes Vital Signs & Weight: Vital Signs (12 hours) Temp Pulse Resp BP Pulse Ox 01/29/18 13:16 98.5 F 94 16 146/103 H 97 01/29/18 07:12 98.5 F 82 16 161/98 H 97 Weight Admit Weight 150 lb Weight 153 lb 5 oz Most Recent Monitor Data Heart Rate from ECG 103 NIBP 118/84 NIBP BP-Mean 95 Respiration from ECG 17 SpO2 93 I&O: 01/28/18 01/29/18 01/30/18 06:59 06:59 06:59 Intake Total 2238 0 Output Total 2550 Balance -312 2049 Result Diagrams: 01/29/18 04:59 01/29/18 04:59 Additional Labs: Microbiology 01/23/18 19:44 Venous blood - Left Arm Blood Culture - Final NO GROWTH IN 5 DAYS 01/23/18 19:44 Venous blood - Left Arm Blood Culture - Final NO GROWTH IN 5 DAYS Phys Exam - Physical Examination Constitutional: NAD HEENT: PERRLA, moist MMs, sclera anicteric, oral pharynx no lesions Neck: no nodes, no JVD, supple, full ROM Respiratory: no wheezing, no rales, no rhonchi, clear to auscultation bilateral Cardiovascular: RRR, no significant murmur, no rub Gastrointestinal: soft, non-tender, no distention, positive bowel sounds Musculoskeletal: no edema, pulses present Neurological: non-focal, normal sensation, moves all 4 limbs Psychiatric: normal affect, A&O x 3 Skin: no rash Dx/Plan - Plan * . * ..IMPRESSION: 1. Severe Sepsis with acute organ dysfunction due o Aspiration Pneumonia/Septic shock off of pressors/ Hypothermia/Toxic Metabolic Encephalopathy 2. Acute hypoxic resp failure s/p Mech Vent-Extubated now 3. Prolonged QT with ?tachyarrythmia. 4. Hypokalemia/Hypophosphatemia 5. Lactic acidosis/Moderate PEM/ History of Alcohol abuse with possible DTs PLAN- reduce IVF.encourage PO intake. advance diet NH when arranged cont Thiamine. Monitor Potassium HD stable no DTs Review of Systems - Review of Systems Constitutional: weakness, malaise. negative: fever, chills, sweats, other Respiratory: negative: Cough, Dry, Shortness of Breath, Hemoptysis, SOB with Excertion, Pleuritic Pain, Sputum, Wheezing Cardiovascular: negative: chest pain, palpitations, orthopnea, paroxysmal nocturnal dyspnea, edema, light headedness, other Gastrointestinal: negative: Nausea, Vomiting, Abdominal Pain, Diarrhea, Constipation, Melena, Hematochezia, Other Genitourinary: negative: Dysuria, Frequency, Incontinence, Hematuria, Retention , Other Musculoskeletal: negative: Neck Pain, Shoulder Pain, Arm Pain, Back Pain, Hand Pain, Leg Pain, Foot Pain, Other Skin: negative: Rash, Lesions, Tom, Bruising, Other Neurological: negative: Weakness, Numbness, Incoordination, Change in Speech, Confusion, Seizures, Other - Medications/Allergies Allergies/Adverse Reactions: Allergies Allergy/AdvReac Type Severity Reaction Status Date / Time No Allergy Information Allergy Verified 01/28/18 09:37 Available Medications: Current Medications Acetaminophen (Tylenol) 650 mg PO Q4H PRN PRN Reason: Headache/Fever/Mild Pain (1-3) Acetaminophen (Tylenol) 650 mg HI Q4H PRN PRN Reason: Headache/Fever/Mild Pain (1-3) Amoxicillin/Clavulanate Potassium (Augmentin) 500 mg PO Q12HR [facility] Last Admin: 01/29/18 08:51 Dose: 500 mg Enoxaparin Sodium (Lovenox) 40 mg SC 0900 [facility] Last Admin: 01/29/18 08:50 Dose: 40 mg Famotidine (Pepcid) 20 mg PO Q12HR [facility] Last Admin: 01/29/18 12:13 Dose: 20 mg Folic Acid (Folvite) 1 mg PO DAILY [facility] Last Admin: 01/29/18 08:51 Dose: 1 mg Potassium Chloride/Dextrose/Sod Cl (D5 1/2 Ns W/20 Meq Kcl) 1,000 mls @ 100 mls /hr IV .Q10H [facility] Last Admin: 01/29/18 09:55 Dose: 1,000 mls Lorazepam (Ativan) 2 mg SLOW IVP Q2H PRN PRN Reason: ASE >9 Potassium Bicarb/Potassium Chloride (K-Lyte Cl) 25 meq PO BID-WM [facility] Last Admin: 01/29/18 12:13 Dose: 25 meq Sodium Chloride (Flush - Normal Saline) 10 ml IVF Q12HR [facility] Last Admin: 01/29/18 08:53 Dose: Not Given Sodium Chloride (Flush - Normal Saline) 10 ml IVF PRN PRN PRN Reason: Saline Flush Thiamine HCl (Thiamine) 100 mg PO DAILY [facility] Last Admin: 01/29/18 08:51 Dose: 100 mg
[2018-01-30 05:22] LABS: #Eosinphils 0.2 thou/uL (0.0-0.7); #Lymphocytes 1.1 thou/uL (1.20-3.40); #Monocytes 1.1 thou/uL (0.11-0.59); %Basophils 0.3 % (0.0-1.0); %Eosinophils 1.9 % (0.0-10.0); %Lymphocytes 11.8 % (21.0-51.0); %Monocytes 11.6 % (0.0-10.0); %Neutrophils 74.4 % (42.0-75.0); Hemoglobin 11.1 g/dL (14.0-18.0); Mean Corpuscular HGB CONC 32.9 g/dL (32.0-36.0); Mean Corpuscular Hemoglobin 30.7 pg (27.0-31.0); Mean Corpuscular Volume 93.3 fL (78.0-98.0); Mean Platelet Volume 8.1 fL (7.4-10.4); Platelet Count 234 thou/uL (130-400); RBC Distribution Width 12.7 % (11.5-14.5); Red Blood Cell (RBC) Count 3.63 mill/uL (4.70-6.10); White Blood Cell (WBC) Count 9.4 thou/uL (4.8-10.8)
[2018-01-30 05:34] LABS: Anion Gap 12 mmol/L (10-20); BUN (Urea Nitrogen) Less than 4 mg/dL (8.4-25.7); Calc. Creatinine Clearance 115 mL/min (70-130); Calcium 8.4 mg/dL (7.8-10.44); Carbon Dioxide 25 mmol/L (23-31); Chloride 103 mmol/L (98-107); Estimated GFR-MDRD Greater than 90; Glucose 88 mg/dL (80-115); Magnesium 1.9 mg/dL (1.6-2.6); Phosphorus 3.9 mg/dL (2.3-4.7); Potassium 3.9 mmol/L (3.5-5.1); Sodium 136 mmol/L (136-145)
--- NOTE | 2018-01-30 06:03 | EKG ---
Test Reason : Blood Pressure : / mmHG Vent. Rate : 078 BPM Atrial Rate : 078 BPM P-R Int : 148 ms QRS Dur : 076 ms QT Int : 522 ms P-R-T Axes : -23 -71 098 degrees QTc Int : 595 ms Sinus rhythm with Premature atrial complexes Left axis deviation Left Anterior Fascicular Block Nonspecific T wave abnormality Prolonged QT Abnormal ECG When compared with ECG of 23-JAN-2018 20:18, (Unconfirmed) Premature atrial complexes are now Present Confirmed by MINI SANTIAGO ([id number]) on 01/30/2018 6:03:27 AM Referred By: WING Confirmed By:MINI SANTIAGO
[2018-01-30 08:51] VITALS: BP 131/81; TEMP 98.6
[2018-01-30] MEDS: Pot Chloride/Pot Bicarb/Cit Ac 25 mEq Effervescent Tablet PO SCH ×2 (09:08→18:29)
[2018-01-30] MEDS: Amoxicillin/Potassium Clav 500 MG TAB PO SCH (09:08)
[2018-01-30] MEDS: Famotidine 20 MG TAB PO SCH (09:09)
[2018-01-30] MEDS: Folic Acid 1 MG TAB PO SCH (09:09)
[2018-01-30] MEDS: Enoxaparin Sodium 40 MG/0.4 ML SYRINGE SC SCH (09:09)
--- NOTE | 2018-01-30 17:05 | DIS ---
DATE OF ADMISSION: 01/24/2018 DATE OF DISCHARGE: 01/30/2018 CONDITION AT THE TIME OF DISCHARGE: Stable and improved. DISCHARGE DISPOSITION: [facility] bed at [place] PRIMARY CARE PHYSICIAN: None. DISCHARGE DIAGNOSES: 1. Altered mental status secondary to toxic metabolic encephalopathy. 2. Acute hypoxic respiratory failure, status post intubation with subsequent extubation, likely seco ndary to aspiration pneumonia. 3. Severe sepsis with acute organ dysfunction due to aspiration pneumonia with septic shock, now res olved. 4. Hypothermia secondary to sepsis, resolved. 5. Prolonged QT, resolved. 6. Hypokalemia and hypophosphatemia, resolved. 7. Lactic acidosis secondary to sepsis, resolved. 8. Moderate protein energy malnutrition. 9. History of alcohol abuse with possible delirium tremens. DISCHARGE MEDICATIONS: Thiamine 100 mg daily, folic acid 1 mg daily, Pepcid 20 mg every 12 hours, Lo venox 40 mg subcutaneously for deep venous thrombosis prophylaxis, Augmentin 500 mg q.12 hours for 7 more days and Tylenol p.r.n. ACCEPTING PHYSICIAN: Norm Escobar M.D. I have discussed the case with Dr. Escobar over the phone who has graciously accepted the patient. PROCEDURES DONE IN THE HOSPITAL: 1. CT scan of the brain and cervical spine upon presentation in the emergency room, which is negativ e for any acute abnormality. 2. CT scan of the abdomen and pelvis done in the emergency room with IV contrast, which is chronic t ype findings with gallbladder distention at 9.4 cm. Otherwise, no acute abnormalities. 3. CT angio of the thorax in the emergency room upon presentation, which is negative for any pulmona ry embolism. 4. Transthoracic echocardiogram, which is EF of 60%-65% without any evidence of significant valvular abnormality or diastolic dysfunction. CONSULTATIONS INHOUSE: 1. Cardiology, Vivien Zuñiga M.D. 2. Pulmonary Critical Care Medicine, Adrian Morrissey M.D. HISTORY OF PRESENT ILLNESS: Mr. Dumas is a 67-year-old male with unknown past medical history wh o was brought into the emergency room when the EMS was called by his neighbors. He was found down at home, coherent, not completely unconscious, lying in some urine. He was intubated en route by EMS b ecause of altered mental status and failure to protect his airways. Upon presentation, he was notice d to be significantly hypotensive and hypothermic. EKG done at the time of admission showed possible long QT syndrome and there was some question of ventricular arrhythmias. He was warmed up, started on empiric IV antibiotics and was admitted to Critical Care Unit. Please see admission history and jalil chapin for further detail. It was thought that he most likely has sepsis with septic shock due to a spiration pneumonia. Lactic acid was 2.8, magnesium 2.2, ammonia 41. Lipase normal. TSH normal. U rinalysis unremarkable. Cardiology and Pulmonary Medicine was consulted. Dr. Zuñiga saw the patient. An echocardiogram was done, which was unremarkable. Dr. Zuñiga followed the patient along, but eventually signed off when his QT prolongation improved. It was thought due to b e secondary to electrolyte abnormalities and no further workup was initiated. He did have acidosis u sherry presentation. He was quickly extubated and was transferred out of the CCU to medical floor. He was continued on sy mptomatic and supportive care. Electrolytes were checked and replaced as needed. Diet was advanced and he tolerated it very well. IV fluids were tapered. Urine drug screen was unremarkable at the ti me of presentation. His electrolyte abnormalities corrected slowly and he was stable to be discharge d to next level of care. He was found to have family and was found not to be safe to be discharged home as he has ongoin g on and off confusion with some baseline dementia on top of alcohol abuse history. He was found to be disheveled as well. Swing bed is an arranged for him for now given his extreme weakness and inabi lity to take care of himself. Dr. Escobar has accepted the patient and he will be discharged. I have seen and examined the patient prior to discharge. PHYSICAL EXAMINATION: VITAL SIGNS: This morning, temperature 98.6, pulse of 72, respirations 16, saturating 96% on room ai r, blood pressure 131/88. GENERAL: No acute distress. He is able to follow commands and answer simple questions and wants to go home or get out of the hospital, I am not sure. CHEST: Clear to auscultation bilaterally. Rate and rhythm is regular. LABORATORY DATA: His serum sodium is 136, potassium 3.9, bicarbonate 25, blood sugar 88, phosphorus 3.9, magnesium 1.9. CBC, hemoglobin 11.1, WBC is 9.4, platelet count of 234,000. His blood cultures are negative in 5 days. He will be discharged to [facility] bed for now.
[2018-01-30] MEDS: D5 1/2 NS w/20 mEq KCL 1,000 ML IV SCH (18:29)
--- NOTE | 2018-02-01 11:33 | EKG ---
Test Reason : Blood Pressure : / mmHG Vent. Rate : 084 BPM Atrial Rate : 084 BPM P-R Int : 154 ms QRS Dur : 076 ms QT Int : 470 ms P-R-T Axes : 074 -79 095 degrees QTc Int : 555 ms Normal sinus rhythm Left axis deviation Nonspecific T wave abnormality Prolonged QT Abnormal ECG Confirmed by ZI YO DO ([id number]), news video editor MIQUEL GIMENEZ ([id number]) on 02/01/2018 11:33:24 AM Referred By: Confirmed By:ZI YO DO
== END 2018-01-30 20:53 | DRG 871 ==
LOC: ERS 19:23 → CCU 23:47 → T4-A 01-28 16:47
PROVIDERS: ADMIT Internal Medicine; ATTEND Internal Medicine
PROC: 5A1945Z Respiratory Ventilation, 24-96 Consecutive Hours (ICD-10-PCS; principal; 2018-01-23)
PROC: 3E043XZ Introduction of Vasopressor into Central Vein, Percutaneous Approach (ICD-10-PCS; 2018-01-23)
DX: A41.9 Sepsis, unspecified organism (principal); J96.01 Acute respiratory failure with hypoxia; R65.21 Severe sepsis with septic shock; G92 Toxic encephalopathy; J69.0 Pneumonitis due to inhalation of food and vomit; E87.2 Acidosis; E44.0 Moderate protein-calorie malnutrition; F10.231 Alcohol dependence with withdrawal delirium; N39.0 Urinary tract infection, site not specified; R40.2431 Glasgow coma scale score 3-8, in the field [EMT or ambulance]; T68.XXXA Hypothermia, initial encounter; E87.6 Hypokalemia; Z68.21 Body mass index [BMI] 21.0-21.9, adult; F03.90 Unspecified dementia, unspecified severity, without behavioral disturbance, psychotic disturbance, mood disturbance, and anxiety; E86.0 Dehydration
CPT/HCPCS: 36415; 36416; 36556; 51702; 70450; 71045; 71275; 72125; 74177; 80048; 80053; 80202; 80306; 80307; 81003; 81015; 82140; 82553; 82805; 83605; 83690; 83735; 84100; 84443; 84484; 85025; 85610; 85730; 86850; 86900; 86901; 87040; 93005; 93010; 93306; 94002; 94003; 96361; 96365; 96366; 96367; 96368; 96372; 99292; G8978-GP-CM; G8979-GP-CK; G8987-GO-CM; G8988-GO-CK; J0282; J1630; J1650; J2060; J2270; J2543; J2704; J3370; J3411; J3480; J7042; J7050; S0028